=== PATIENT | female | born 1985 ===

== ENCOUNTER 2020-10-04 13:31 | Emergency (ER) | payer SELFPAY ==
[~2020-10-04] VITALS: Ht 162.6 cm; Wt 60.2 kg
[2020-10-04] MEDS ORDERED: ACETAMINOPHEN 500 MG TABLET ONE (14:10)
[2020-10-04] MEDS ORDERED: DEXAMETHASONE 4 MG TABLET ONE ×2 (14:10→14:12)
[2020-10-04] MEDS ORDERED: DEXAMETHASONE 4 MG TABLET PO ONE (14:30)
[2020-10-04] MEDS ORDERED: ACETAMINOPHEN 500 MG TABLET PO ONE (14:30)
--- NOTE | 2020-10-04 14:57 | NUR ---
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
--- NOTE | 2020-10-04 15:26 | NUR ---
postive strep. no blood cultures per md.
[2020-10-04] MEDS ORDERED: PLEASE ENTER ALLERGIES MC SCH (15:30)
[2020-10-04] MEDS ORDERED: SODIUM CHLORIDE 0.9% 1,000ML IVBOLUS ONE (15:30)
[2020-10-04] MEDS ORDERED: MORPHINE SULFATE 4 MG/ML, 1ML IVPush ONE (15:30)
[2020-10-04] MEDS ORDERED: AMPICILLIN/SULBACTAM 3 GM in SODIUM CHLORIDE 0.9% 100 ML IV ONE (15:30)
[2020-10-04] MEDS ORDERED: MORPHINE SULFATE 4 MG/ML, 1ML ONE (15:34)
--- NOTE | 2020-10-04 15:43 | NUR ---
pt medicated per emar. vss. nadn. pt asleep with even and unlabored respirations.
[2020-10-04 17:00] VITALS: BP 115/76
--- NOTE | 2020-10-04 18:25 | NUR ---
Patient given discharge instructions and they have confirmed that they understand the instructions. Patient ambulatory with steady gait. NAD, all questions answered appropriately, denies additional needs at this time. No personal belongings left in room after discharge.
== END 2020-10-04 18:27 | disposition home or self-care (01) ==
LOC: ED 18:21
DX: J02.0 Streptococcal pharyngitis (principal); F11.10 Opioid abuse, uncomplicated
CPT/HCPCS: 71045; 87880; 96365; 96375; 99284; J0295; J2270; J7030